=== PATIENT | male | born 1990 | race Caucasian/White ===

== ENCOUNTER → 2018-12-18 18:54 | Outpatient (ROUT) | payer OTHER, SELFPAY | PROVIDERS: Visit Provider Family Medicine | DX: R10.9 Unspecified abdominal pain (principal) | CPT/HCPCS: 87086 ==

== ENCOUNTER → 2019-10-22 15:07 | Outpatient (CLI) | payer BC, SELFPAY ==
--- NOTE | 2019-10-22 15:11 | DI.RAD.S_ITS ---
PROCEDURE: XR WRIST LT MIN 4V INDICATIONS: Mid wrist pain proximal 2-3 metacarpal pain. TECHNIQUE: 4 views of the wrist were acquired. COMPARISON: None. FINDINGS: Bones: No fractures or dislocations. No suspicious bony lesions. Scaphoid view: The fluid is intact. Soft tissues: No suspicious soft tissue calcifications. IMPRESSION: No fracture. No osseous lesion. If symptoms and/or clinical suspicion for pathology persists, further assessment with repeat radiographs (7-10 days) or advanced imaging (e.g. CT, MRI or bone scan) may be helpful. Dictated by: Anna Marrero MD, PhD on 10/22/2019 at 15:27 Approved by: Anna Marrero MD, PhD on 10/22/2019 at 15:54
== END ==
PROVIDERS: PCP Family Medicine; Referring Provider Nurse Practitioner; Visit Provider Nurse Practitioner
DX: M25.532 Pain in left wrist (principal); F43.10 Post-traumatic stress disorder, unspecified
CPT/HCPCS: 73110

== ENCOUNTER → 2020-05-27 14:56 | Outpatient (CLI) | payer BC, SELFPAY ==
--- NOTE | 2020-05-27 | DI.RAD.S_ITS ---
PROCEDURE: XR CHEST 2V INDICATIONS: RESTRICTIVE LUNG DISEASE TECHNIQUE: 2 views of the chest were acquired. COMPARISON: None. FINDINGS: Surgical changes and devices: None. Lungs and pleura: Lungs are clear. No pleural effusions or pneumothorax. Mediastinum: Mediastinal contours are normal. Heart size is normal. Bones and chest wall: No suspicious bony abnormalities. Soft tissues appear unremarkable. IMPRESSION: No acute process. Dictated by: Yousuf Pak M.D. on 05/27/2020 at 16:36 Approved by: Yousuf Pak M.D. on 05/27/2020 at 16:36
== END ==
PROVIDERS: PCP Family Medicine; Referring Provider Family Medicine; Visit Provider Family Medicine
DX: J98.4 Other disorders of lung (principal)
CPT/HCPCS: 71046